=== PATIENT | female | born 1950 | race Caucasian/White ===

== ENCOUNTER 2019-05-19 12:59 | Inpatient (IN) ==
--- NOTE | 2019-05-19 13:24 | Diag Imaging Result Doc PS360 ---
EXAM: CT HEAD W/O CONTRAST HISTORY: AMS TECHNIQUE: CT head without contrast COMPARISON: 05/08/2017 FINDINGS: No parenchymal hemorrhage. No epidural or subdural hematoma. No subarachnoid hemorrhage. There are postsurgical changes similar to the prior exam. Mild atrophy with chronic microvascular ischemic changes. No mass identified on this noncontrasted exam. No hydrocephalus. Mucous in the left maxillary sinus. IMPRESSION: 1.No hemorrhage 2.Chronic microvascular ischemic changes 3.And postsurgical changes. This exam was performed using automated exposure control, adjustment of mA or kV according to patient size, and/or use of iterative reconstruction technique. Electronically signed by Dennis Sommer 05/19/2019 1:21 PM
[2019-05-19 13:59] LABS: BASO# 0.02 X1000 (0.0-0.2); BASO% 0.2 % (0.0-0.8); EOS# 0.06 X1000 (0.0-0.7); EOS% 0.7 % (0.0-10.0); HEMATOCRIT 39.3 % (37.0-47.0); HEMOGLOBIN 13.4 g/dL (12.0-16.0); IMM GRAN# 0.03 X1000 (0.0-0.04); IMM GRAN% 0.4 % (0.0-0.5); LYMPH# 2.36 X1000 (1.2-3.4); LYMPH% 28.7 % (20.5-51.1); MCH 30.1 PG (27-31); MCHC 34.1 g/dL (33-37); MCV 88.3 FL (81-99); MONO# 0.57 X1000 (0.11-0.59); MONO% 6.9 % (1.7-9.3); MPV 10.7 FL (7.4-10.4); NEUT# 5.18 X1000 (1.4-6.5); NEUT% 63.1 % (42.2-75.2); PLT 202 X1000 (130-400); RBC 4.45 XMIL (4.2-5.4); RDW 13.1 % (11.5-14.5); WBC 8.22 X1000 (4.8-10.8)
--- NOTE | 2019-05-19 14:14 | EKG Report ---
Test Performed on : 05/19/2019 2:07:40 PM Test Reason : ams Blood Pressure : / mmHG Vent. Rate : 070 BPM Atrial Rate : 071 BPM P-R Int : 000 ms QRS Dur : 086 ms QT Int : 410 ms P-R-T Axes : 000 002 032 degrees QTc Int : 442 ms Accelerated Junctional rhythm. Minimal voltage criteria for LVH, may be normal variant Abnormal ECG When compared with ECG of 10-MAY-2018 18:08, Junctional rhythm. has replaced Sinus rhythm. Unconfirmed Result
[2019-05-19 14:23] LABS: AGAP 15; ALBUMIN 4.1 g/dL (3.5-5.0); ALKALINE PHOSPHATASE 68 U/L (32-104); BUN 17 mg/dL (8-22); CALCIUM 9.2 mg/dL (8.8-10.2); CHLORIDE 107 mmol/L (98-107); CK PROFILE 84 U/L (24-173); COSMO 284; CREATININE 0.5 mg/dL (0.5-0.9); ESTIMATED GFR > 60; GLUCOSE 95 mg/dL (70-104); GOT 19 U/L (10-30); GPT 15 U/L (10-36); POTASSIUM 3.7 mmol/L (3.5-5.1); SODIUM 142 mmol/L (136-145); TCO2 20 mmol/L (25-35)
[2019-05-19 14:30] LABS: BILIRUBIN URINE NEGATIVE (NEGATIVE); BLOOD URINE NEGATIVE (NEGATIVE); GLUCOSE URINE NEGATIVE (NEGATIVE); KETONE URINE 2+(Moderate) mg/dL (NEGATIVE); LEUKOCYTES URINE NEGATIVE (NEGATIVE); NITRITE URINE NEGATIVE (NEGATIVE); PH URINE 6.5; PROTEIN URINE TRACE mg/dL (NEGATIVE); SP GRAVITY URINE 1.015; UROBILINOGEN URINE NORMAL
[2019-05-19 14:31] LABS: CLARITY CLEAR (CLEAR); COLOR YELLOW
[2019-05-19 14:35] LABS: UR AMPHETAMINES QUAL NONE DETECTED (NONE DETECT); UR BARBITUATES QUAL NONE DETECTED (NONE DETECT); UR BENZODIAZEPIN QUAL NONE DETECTED (NONE DETECT); UR COCAINE QUAL NONE DETECTED (NONE DETECT); UR METHADONE QUAL NONE DETECTED (NONE DETECT); UR METHAMPHETAMINE QUAL NONE DETECTED (NONE DETECT); UR OPIATES QUAL NONE DETECTED (NONE DETECT); UR OXYCODONE QUAL NONE DETECTED (NONE DETECT)
[2019-05-19 14:36] LABS: UR CANNABINOIDS QUAL NONE DETECTED (NONE DETECT); UR PCP QUAL NONE DETECTED (NONE DETECT); UR PROPOXYPHENE QUAL NONE DETECTED (NONE DETECT); UR TCA QUAL NONE DETECTED (NONE DETECT)
[2019-05-19 14:56] LABS: URINE EPITHELIAL CELLS <10 /HPF (<10); URINE WBC <10 /HPF (<10)
[2019-05-19 14:57] LABS: URINE BACTERIA 1+ /HFP; URINE CAST NONE SEEN /LPF; URINE CRYSTAL NONE SEEN /HPF; URINE SOURCE CATH; URINE YEAST NONE SEEN /HPF
--- NOTE | 2019-05-19 15:18 | PROVIDER DOCUMENTATION ---
This chart was entered by Marina Jones Scribe, acting as scribe for Penny Randle CRNP. HPI-Neurological Disorder - General Chief Complaint: Altered Mental Status Stated Complaint: AMS Time Seen by Provider: 05/19/19 13:03 Source: patient, EMS Allergies/Adverse Reactions: Patient Allergies Allergy/AdvReac Type Severity Reaction Status Date / Time codeine Allergy VOMITING Verified 05/10/19 11:49 diphenhydramine Allergy Unknown Verified 05/10/19 11:49 [From Benadryl] morphine Allergy ITCHING Verified 05/10/19 11:49 Home Medications: Home Medication List Medication Instructions Recorded Confirmed Last Taken Type Lisinopril/Hydrochlorothiazide 10 mg PO DAILY 12/14/16 05/10/19 Unknown History [Lisinopril-Hctz 10-12.5 mg Tab] - History of Present Illness-Neuro Nature of Presenting Problem: [id number] presents to ED by EMS cc AMS. EMS reports they were called to [facility] be cause pt was wandering around the parking lot 'confused'. Pt reports she passed out in bathroom at home this morning but then drove to [facility], bought about $300 of groceries and couldn't find her car. Pt denies LOC or dizziness.Pt has hx of CVA. Sister is at bedside. Review of Systems - Adult - REVIEW OF SYSTEMS - ADULT Constitutional: reports: see HPI. denies: chills, fever Eyes: reports: no symptoms reported Ears, Nose, Mouth & Throat: reports: no symptoms reported Cardiovascular: reports: no symptoms reported Respiratory: reports: no symptoms reported Gastrointestinal: reports: no symptoms reported Genitourinary: reports: no symptoms reported Musculoskeletal: reports: no symptoms reported Integumentary: reports: no symptoms reported Neurological: reports: see HPI, other (AMS). denies: dizziness/vertigo Psychiatric: reports: no symptoms reported Endocrine: reports: no symptoms reported Hematologic/Lymphatic: reports: no symptoms reported Allergic/Immunologic: reports: no symptoms reported All Other Systems: Reviewed and Negative Past History - Adult - PAST MEDICAL HISTORY-ADULT Review of Records: reports: Nursing Assessment Review, Medications Reviewed, Social history reviewed & non-contributory. Major Childhood Illnesses: reports: denies history Cardiovascular: reports: HTN. denies: CAD Respiratory: reports: denies history Gastrointestinal: reports: denies history Obstetrical/Gynecological: reports: denies history Genitourinary: reports: denies history Musculoskeletal: reports: arthritis, chronic pain, osteoporosis Neurological: reports: CVA, other (anerusym) Psychiatric: reports: anxiety Endocrine/Immune: reports: denies history Other Conditions: reports: denies history - PRIOR SURGERIES/PROCEDURES Surgical/Procedure History: reports: appendectomy, cholecystectomy, hysterectomy , orthopedic (extremity) (lumbar disc surgery) - PRIOR HOSPITALIZATIONS Prior Hospitalizations: reports: for other non-related - IMMUNIZATION STATUS Childhood Immunizations: See Nurse Assessment Flu Vaccine: See Nurse Assessment - FAMILY HISTORY Family History: reviewed, not pertinent Physical Exam- Neurological - Physical Exam-Neuro Initial Vital Signs Reviewed: Yes General Appearance: alert, no apparent distress, slow to respond. negative: anxious, combative Eye Exam: bilateral eye: normal inspection, PERRL, EOMI HENMT: moist mucous membranes, normal ENT inspection Head Injury: no evidence of injury. negative: active bleeding, contusions, ecch ymosis, lacerations, raccoon eyes Neck: non-tender, full range of motion, supple, normal inspection Respiratory: lungs clear, normal breath sounds, no respiratory distress, no accessory muscle use Cardiovascular: normal peripheral pulses, regular rate, rhythm Abdominal Exam: normal bowel sounds, non tender, soft Lymphatic: no adenopathy Extremity: normal range of motion, non-tender, normal gait, normal inspection, no pedal edema, no calf tenderness, normal capillary refill trouble locator test desk Exam: normal hearing, normal speech, PERRL. negative: facial droop, facial paresthesias, facial weakness Coordination/Gait: normal finger to nose Motor/Sensory: no motor deficit, no sensory deficit, no pronator drift Neurologic: trouble locator test desk II-XII nml as tested, grossly normal, no motor/sensory deficits. negative: facial droop, focal weakness Integumentary: normal color, warm/dry Psych/Mental Status: normal mood/affect. negative: disoriented x 3, anxious, disheveled, depressed affect - Glascow Coma Scale Best Eye Response: (4) open spontaneously Best Verbal Response: (4) confused conversation Best Motor Response: (6) obeys commands Total Glascow Score: 14 Progress - PLAN OF CARE/RESULTS Progress/Plan/Lab Results: Vital Signs - 8 hr 05/19/19 12:55 07/08/19 14:14 05/19/19 14:49 Temperature 98.5 F Pulse Rate 98 H 69 Pulse Rate [Sitting] 80 Pulse Rate [Standing] 85 Pulse Rate [Supine] 66 Respiratory Rate 16 17 Blood Pressure 118/68 134/74 Blood Pressure [Sitting] 146/87 Blood Pressure [Standing] 141/79 Blood Pressure [Supine] 138/77 O2 Sat by Pulse Oximetry 96 96 05/19/19 14:53 Temperature Pulse Rate 67 Pulse Rate [Sitting] Pulse Rate [Standing] Pulse Rate [Supine] Respiratory Rate 20 Blood Pressure 141/79 Blood Pressure [Sitting] Blood Pressure [Standing] Blood Pressure [Supine] O2 Sat by Pulse Oximetry 96 Laboratory Results - last 24 hr 05/19/19 05/19/19 05/19/19 13:48 13:48 13:48 WBC 8.22 RBC 4.45 Hgb 13.4 Hct 39.3 MCV 88.3 MCH 30.1 MCHC 34.1 RDW Std Deviation 13.1 Plt Count 202 MPV 10.7 H Immature Gran % (Auto) 0.4 Neut % (Auto) 63.1 Lymph % (Auto) 28.7 [place] % (Auto) 6.9 Eos % (Auto) 0.7 Baso % (Auto) 0.2 Immature Gran # (Auto) 0.03 Neut # (Auto) 5.18 Lymph # (Auto) 2.36 [place] # (Auto) 0.57 Eos # (Auto) 0.06 Baso # (Auto) 0.02 Sodium 142 Potassium 3.7 Chloride 107 Carbon Dioxide 20 L Anion Gap 15 BUN 17 Creatinine 0.5 Estimated GFR/1.73 m2 > 60 BUN/Creatinine Ratio 34 Glucose 95 Calculated Osmolality 284 Calcium 9.2 Total Bilirubin 0.60 AST 19 ALT 15 Alkaline Phosphatase 68 Creatine Kinase 84 Troponin T < 0.010 Total Protein 7.0 Albumin 4.1 Globulin 3.0 Albumin/Globulin Ratio 1.0 Urine Source Urine Color Urine Clarity Urine pH Ur Specific [place] Urine Protein Urine Ketones Urine Blood Urine Nitrite Urine Bilirubin Urine Urobilinogen Urine Microscopic RBC Urine WBC Urine Microscopic WBC Ur Epithelial Cells Urine Crystals Urine Bacteria Urine Casts Urine Yeast Urine Glucose Urine Opiates Screen Ur Oxycodone Screen Urine Methadone Screen U Propoxyphene Qual Ur Barbituates Screen Ur Tricyclics Screen Ur Phencyclidine Scrn Ur Amphetamines Screen U Methamphetamines Scrn U Benzodiazepines Scrn Urine Cocaine Screen U Cannabinoids Screen Plasma/Serum Ethyl Alc 05/19/19 05/19/19 05/19/19 13:48 14:15 14:15 WBC RBC Hgb Hct MCV MCH MCHC RDW Std Deviation Plt Count MPV Immature Gran % (Auto) Neut % (Auto) Lymph % (Auto) [place] % (Auto) Eos % (Auto) Baso % (Auto) Immature Gran # (Auto) Neut # (Auto) Lymph # (Auto) [place] # (Auto) Eos # (Auto) Baso # (Auto) Sodium Potassium Chloride Carbon Dioxide Anion Gap BUN Creatinine Estimated GFR/1.73 m2 BUN/Creatinine Ratio Glucose Calculated Osmolality Calcium Total Bilirubin AST ALT Alkaline Phosphatase Creatine Kinase Troponin T Total Protein Albumin Globulin Albumin/Globulin Ratio Urine Source CATH Urine Color YELLOW Urine Clarity CLEAR Urine pH 6.5 Ur Specific [place] 1.015 Urine Protein TRACE A Urine Ketones 2+(Moderate) A Urine Blood NEGATIVE Urine Nitrite NEGATIVE Urine Bilirubin NEGATIVE Urine Urobilinogen NORMAL Urine Microscopic RBC Not Reportable Urine WBC NEGATIVE Urine Microscopic WBC <10 Ur Epithelial Cells <10 Urine Crystals NONE SEEN Urine Bacteria 1+ Urine Casts NONE SEEN Urine Yeast NONE SEEN Urine Glucose NEGATIVE Urine Opiates Screen NONE DETECTED Ur Oxycodone Screen NONE DETECTED Urine Methadone Screen NONE DETECTED U Propoxyphene Qual NONE DETECTED Ur Barbituates Screen NONE DETECTED Ur Tricyclics Screen NONE DETECTED Ur Phencyclidine Scrn NONE DETECTED Ur Amphetamines Screen NONE DETECTED U Methamphetamines Scrn NONE DETECTED U Benzodiazepines Scrn NONE DETECTED Urine Cocaine Screen NONE DETECTED U Cannabinoids Screen NONE DETECTED Plasma/Serum Ethyl Alc Orders Category Date Time Status Orthostatic Vital Signs NOW Care 05/19/19 14:[address] HEAD W/O CONTRAST [CT] Stat Exams 05/19/19 12:54 Completed ALCOHOL BLOOD Stat Lab 05/19/19 13:48 Completed CBC WITH DIFF [HEME] Stat Lab 05/19/19 13:48 Completed CK PROFILE [SP CHEM] Stat Lab 05/19/19 13:48 Completed COMPREHENSIVE METABOLIC PANEL [CHEM] Stat Lab 05/19/19 13:48 Completed TROPONIN T Stat Lab 05/19/19 13:[address] W/POSS RFLX CULT [URINALYSIS] Stat Lab 05/19/19 14:15 Com[address] DRUG SCREEN [address] Stat Lab 05/19/19 14:15 Completed EKG [EKG] Stat Ther 05/19/19 13:15 Draft Result Diagrams: 05/19/19 13:48 05/19/19 13:48 - REASSESSMENT Reassessment #1 Time Reassessed: 15:06 (discussed results with family and pt. Family member states he found pt in bathroom floor yesterday with blood in the corner of her mouth. Pt still confused. Family reports pt has seemed more confused over past few days. Pt still has some confusion at present. Discussed pt with Dr Vang who suggests admission) Reassessment #2 Time Reassessed: 15:17 (Made family aware of admission, agree with plan.) - CT/MRI 1 CT Study: Head Impression: See EMR Report (IMPRESSION: 1.No hemorrhage 2.Chronic microvascular ischemic changes 3.And postsurgical changes. This exam was performed using automated exposure control, adjustment of mA or kV according to patient size, and/or use of iterative reconstruction technique. Electronically signed by Dennis Sommer 05/19/2019 1:21 PM) - CONSULTS/PCP/HOSPITALIST Notification #1 *Consult/PCP/Hospitalist*: Dr Schumacher, hospitalist Time Discussed: 15:12 Consult Disposition: Admit Departure - Departure Date of Disposition Decision: 05/19/19 Time of Disposition Decision: 15:07 DIAGNOSIS: Altered mental state Qualifiers: Altered mental status type: unspecified Qualified Code(s): R41.82 - Altered mental status, unspecified Disposition: ADMITTED INPATIENT 09 Certified Medical Emergency: Emergent Condition: Fair Additional Freetext Instructions: ED Follow Up Instructions: You have been treated by a care provider in the Emergency Department. These instructions are being provided to you so you can have an understanding of how to care for yourself upon discharge. Upon discharge from the Emergency Department, you are responsible for making arrangements for follow-up care by a physician of your choice. Take all prescribed medications as directed. Return to the Emergency Department immediately for any new or worsening symptoms. You may call the Physician Referral phone number at [phone] to obtain a list of Physicians who are taking new patients. Referrals and Follow-Ups: None,PCP [Primary Care Provider] - - Critical Care Note This patient required my direct & personal management of CC.: No Attestation - Physician/ DOLORES Attestation Patient care was provided by Advanced Practice Provider:: Yes Advanced Practice Provider:: Penny Randle Advanced Practice Provider documentation review:: The Mid-level provider documentation, treatment plan and medical decision making was reviewed by the physician who agrees with all treatment and medical decision making by the MLP. The physician spent face to face time with patient:: No Advanced Practice Provider documentation review:: Supervising physician onsite and consulted in the evaluation and care of this patient. The physician did not have a face to face encounter with the patient. - NIH Stroke Scale NIH Type: Initial Evaluation Level of Consciousness: 0-Alert LOC Questions (ask month and age): 0-Answers Both Correctly LOC Commands (ask to open & close eyes;make a fist, let go): 1-Obeys One Correctly Best Gaze (horizontal eye movement): 0-Normal Visual (use finger movement, counting or visual threat): 0-No Visual Loss Facial Palsy (show teeth or raise eyebrows & close eyes tght: 0-Symmetrical Movement Motor Function-left arm: 0-Normal Motor Function-right arm: 0-Normal Motor Function-left le-Normal Motor Function-right le-Normal Limb Ataxia(awrcax-onxx-goswfy, or heel to sebastian): 0-No Ataxia Sensory(pin prick to face,arms,trunk,legs-compare side/side): 0-No Ataxia Best Language(name item/read sentence.Ex-Down to Earth): 0-No Aphasia Dysarthria(Pt read words or say words Ex.Mama,Tip-Top,Thanks: 0-Normal Articulation Extinction and Inattention: 0-Normal Modified Arroyo Score Criteria: 1-no significant disability despite symptoms This chart was documented by the indicated scribe, (Marina Jones, [employer]) and accurately reflects the services I performed and decisions made by me, Penny Contreras CRNP, as attested by the provider's signature.
[2019-05-19] MEDS ORDERED: NARCAN IV ONE (15:27)
[2019-05-19] MEDS ORDERED: TYLENOL PO PRN ×2 (15:49→17:32)
--- NOTE | 2019-05-19 16:18 | HISTORY AND PHYSICAL ---
CHIEF COMPLAINT: Confusion, altered mental status. HISTORY OF PRESENT ILLNESS: This is a 69-year-old female, who was brought to the emergency department because of altered mental status. Apparently, the patient reports that she passed out in the bathroom at home, but [facility] When she finished shopping groceries, she was not able to find her car, so [facility] staff called the ambulance because patient was wandering around the parking lot, looking confused. In the ER upon my examination, she is still looks confused. Son is at bedside, who confirms that his mother is still confused. She reports no loss of consciousness, dizziness, or feeling lightheaded. Patient has history of prior CVA and apparently some brain aneurysms. The patient is going to be admitted for observation for all those symptoms. PAST MEDICAL HISTORY: 1. Hypertension. 2. Osteoarthritis. 3. Chronic back pain. 4. Osteoporosis. 5. CVA. 6. Brain aneurysm. 7. Anxiety disorder. PAST SURGICAL HISTORY: 1. Appendectomy. 2. Partial hysterectomy. ALLERGIES: As per previous records, the patient is allergic to morphine and codeine because that caused patient to become very agitated and aggressive. REVIEW OF SYSTEMS: Not possible to obtain because patient continues to be confused. PHYSICAL EXAMINATION: VITALS: Temperature 98.1 degrees, heart rate 69, respiratory rate 17, blood pressure 134/74, O2 saturation 96% on room air. GENERAL EXAMINATION: This is a 69-year-old female, lying in bed, in no acute distress. HEENT: Head is normocephalic, atraumatic. NECK: No JVD noted. No carotid bruits. No lymphadenopathy. No thyromegaly. CARDIOVASCULAR: S1, S2 heard. No murmurs, gallops, or rubs. Regular rate and rhythm. RESPIRATORY: Clear bilaterally to auscultation. No work of breathing or using accessory muscles. ABDOMEN: Soft, nontender to palpation. Bowel sounds present. No organomegaly. EXTREMITIES: No clubbing, cyanosis, or edema. Peripheral pulses present in both legs. NEUROLOGICAL: Patient is alert, awake, but looks confused. Her speech is coherent. Patient's motor strength is 5/5 in all extremities. No slurred speech noted. Cranial nerves 2 to 12 grossly normal. DIAGNOSTIC STUDIES: Laboratory data unremarkable, as well as UDS and urinalysis. Head CT showed no hemorrhage, chronic microvascular ischemic changes, and postsurgical changes. ASSESSMENT: 1. Acute confusion/altered mental status. 2. Hypertension. 3. History of cerebrovascular accident. 4. Brain aneurysm. 5. Anxiety disorder. PLAN: At this point, patient is going to be admitted to hospital for observation. As per family request, because the patient has had another episode of stroke we are going to order an MRI of the brain with and without contrast, and to check previous aneurysms, we will do MRA of brain and neck and we will see what it shows. In the meantime, we will admit this patient to the hospital. We will do neurological checks as protocol. We will continue with home medications. We will continue to monitor this patient closely. The patient was not using any opiates for a long period of time. She is only taking Tylenol for pain control. We will continue with that medication. I think that if the imaging is okay and patient is feeling better, we may discharge this patient tomorrow morning. cc: Uriel López MD
[2019-05-19] MEDS ORDERED: ZOFRAN IV PRN (17:32)
--- NOTE | 2019-05-19 17:49 | Diag Imaging Result Doc PS360 ---
EXAM: CT ANGIOGRAM HEAD/NECK - 05/19/2019 HISTORY: stroke suspected, history of brain aneurysm TECHNIQUE: CT angiogram neck/head with intravenous contrast. Axial and 3-D MIP images are obtained. COMPARISON: None. FINDINGS: CT angiogram neck: There are artifacts which limit detail at the upper neck. There is no substantial stenosis identified at the common carotids, carotid bulbs, or visualized internal carotids. CT angiogram head: Exam is of suboptimal diagnostic quality, particularly the reconstructed images. This may relate to a combination of streak artifacts from metallic aneurysm clips and multiple overlapping peripheral arterial and venous structures. There is no obvious aneurysm identified on the axial images. There is no obvious major intracranial arterial occlusion identified on the axial images. IMPRESSION: CT angiogram neck: No visible carotid stenosis. CT angiogram head: Suboptimal study. No obvious aneurysm. No obvious major intracranial arterial occlusion. Electronically signed by Evgeny Cherry 05/19/2019 5:47 PM
[2019-05-19] MEDS ORDERED: LOVENOX SUBQ SCH (18:00)
[2019-05-19] MEDS: NS 1,000 ML IV SCH (18:00)
[2019-05-19] MEDS ORDERED: AMBIEN PO ONE (21:37)
[2019-05-20] MEDS: NS 1,000 ML IV SCH ×2 (01:10→11:01)
[2019-05-20 04:20] LABS: BILIRUBIN URINE NEGATIVE (NEGATIVE); BLOOD URINE NEGATIVE (NEGATIVE); GLUCOSE URINE NEGATIVE (NEGATIVE); KETONE URINE TRACE mg/dL (NEGATIVE); LEUKOCYTES URINE TRACE (NEGATIVE); NITRITE URINE NEGATIVE (NEGATIVE); PROTEIN URINE NEGATIVE (NEGATIVE); UROBILINOGEN URINE NORMAL
[2019-05-20 04:21] LABS: CLARITY CLEAR (CLEAR); COLOR YELLOW
[2019-05-20 04:24] LABS: URINE BACTERIA 4+ /HFP; URINE CAST NONE SEEN /LPF; URINE CRYSTAL NONE SEEN /HPF; URINE EPITHELIAL CELLS <10 /HPF (<10); URINE RBC <10 /HPF (<10); URINE SOURCE CLEAN CATCH; URINE YEAST NONE SEEN /HPF
[2019-05-20] MEDS ORDERED: PRILOSEC PO SCH (07:00)
[2019-05-20 07:02] LABS: AGAP 10; BUN 12 mg/dL (8-22); CALCIUM 8.5 mg/dL (8.8-10.2); CHLORIDE 111 mmol/L (98-107); COSMO 283; CREATININE 0.5 mg/dL (0.5-0.9); ESTIMATED GFR > 60; GLUCOSE 92 mg/dL (70-104); MAGNESIUM 1.9 mg/dL (1.5-2.7); POTASSIUM 3.8 mmol/L (3.5-5.1); SODIUM 142 mmol/L (136-145); TCO2 22 mmol/L (25-35)
[2019-05-20 07:06] LABS: HEMATOCRIT 38.7 % (37.0-47.0); HEMOGLOBIN 13.4 g/dL (12.0-16.0); MCH 30.3 PG (27-31); MCHC 34.6 g/dL (33-37); MCV 87.6 FL (81-99); RBC 4.42 XMIL (4.2-5.4); RDW 13.2 % (11.5-14.5); WBC 7.98 X1000 (4.8-10.8)
[2019-05-20 10:53] VITALS: BP 132/71
--- NOTE | 2019-05-22 08:22 | DISCHARGE SUMMARY ---
ADMISSION DATE: 05/19/2019 DISCHARGE DATE: 05/20/2019 DISCHARGE DIAGNOSES: 1. Transient ischemic attack, resolved. 2. Heat exhaustion. [*]transient ischemic attack. 3. Dehydration improved. 4. Hypertension. 5. History of cerebrovascular accident. 6. History of brain aneurysm. 7. Anxiety. CONSULTATIONS: None. PROCEDURES: None. BRIEF HOSPITAL COURSE: The patient is a 69-year-old female who presented to the hospital after being confused and disoriented while shopping. She had gone outside and notes that she has not really been drinking well. After leaving the shopping center, she became confused and disoriented, and could not find her car, and therefore was brought to the ER via ambulance. Thankfully, she is currently awake, alert and oriented. She is in no distress. Her memory is back to normal. She is having no complaints, and therefore will be discharged home. DISPOSITION: Patient to be discharged home. No changes were made on her home medications, diet, or activity. She was however discussed to make sure that she is staying well hydrated. She will need to follow up outpatient with primary care regarding MRI, and follow up on her [*]aneurysm. cc: Tommy Shah MD
== END 2019-05-20 11:01 | disposition home or self-care (01) | DRG 69 ==
LOC: P.ED 12:59 → SUATTDRO 16:52 → P.ICU 16:52
PROVIDERS: ATTEND Family Medicine
CPT/HCPCS: 36415; 70450; 70496; 70498; 80048; 80053; 80104; 80301; 80305; 80307; 80320; 81001; 82055; 82550; 83735; 84484; 85025; 85027; 87088; 93005; 97163; A9270; G0431; G0434; G0477; G0480; G6040; J1650; J7030; Q9967